=== PATIENT | female | born 1960 | race Caucasian/White ===

== ENCOUNTER 2024-06-03 00:14 | Emergency (ER) | payer OTHER ==
[2024-06-03] MEDS ORDERED: Lidocaine 1% (PF) 30 ML VIAL ONE (01:11)
[2024-06-03] MEDS ORDERED: Bacitracin 1 PK ONE (01:34)
== END 2024-06-03 01:57 | disposition home or self-care (01) ==
LOC: CSHERS 00:14
DX: S01.112A Laceration without foreign body of left eyelid and periocular area, initial encounter (principal); W01.198A Fall on same level from slipping, tripping and stumbling with subsequent striking against other object, initial encounter
CPT/HCPCS: 12013; 99282; J2001